=== PATIENT | female | born 1985 | race Caucasian/White ===

== ENCOUNTER 2017-04-03 21:34 | Emergency (ER) | payer OTHER ==
[2017-04-03] MEDS ORDERED: LIDOCAINE 1% W/EPI MPF 10 ML SOL INJ ONE (22:10)
[2017-04-03] MEDS ORDERED: LIDOCAINE 2% W/ EPI MPF 20 ML SOL ONE (22:33)
[2017-04-03 22:50] VITALS: BP 112/60; PULSE 62; RESP 16; TEMP 97.6; O2SAT 99
== END 2017-04-03 23:36 | disposition home or self-care (01) ==
LOC: ED 21:34
DX: S01.01XA Laceration without foreign body of scalp, initial encounter (principal); W22.8XXA Striking against or struck by other objects, initial encounter
CPT/HCPCS: 12001; 99283